=== PATIENT | male | born 1950 | race Caucasian/White ===

== ENCOUNTER 2018-02-28 15:17 | Emergency (ER) | payer OTHER ==
[~2018-02-28] VITALS: Ht 180.3 cm; Wt 94.8 kg
[2018-02-28 15:43] LABS: BASO % 0.2 % (0.0-1.0); HEMOGLOBIN 16.9 g/dl (14.0-18.0); LYMPH # 0.9 10*3/uL (1.3-4.4); LYMPH % 15.7 % (27.0-41.0); MEAN CELL VOLUME 93.3 fl (80.0-94.0); MEAN CORPUSCULAR HGB 32.2 pg (27.0-31.0); MEAN CORPUSCULAR HGB CONC 34.5 g/dl (33.0-37.0); MEAN PLATELET VOLUME 10.1 fl (9.6-12.3); MONO # 0.6 10*3/uL (0.1-1.0); MONO % 10.2 % (3.0-9.0); NEUT % 73.4 % (47.0-73.0); PLATELET COUNT AUTOMATED 71 10*3/uL (130-400); RED BLOOD COUNT 5.25 10*6/uL (4.50-5.90); RED CELL DISTRI WIDTH 13.1 % (0-14.5); WHITE BLOOD COUNT 5.5 10*3/uL (4.8-10.8)
[2018-02-28 15:58] LABS: ALBUMIN 3.5 gm/dl (3.1-4.5); ALKALINE PHOSPHATASE 57 U/L (45-117); BUN 19 mg/dl (7-24); CHLORIDE 101 mmol/L (98-107); CREATININE 1.25 mg/dL (0.70-1.30); POTASSIUM 3.8 mmol/L (3.5-5.1); SGOT/AST 66 IU/L (3-35); SGPT/ALT 47 U/L (12-78); SODIUM 132 mmol/L (136-145); TOTAL PROTEIN 7.3 gm/dL (6.4-8.2)
[2018-02-28 16:00] LABS: TROPONIN I 0.017 ng/ml (<0.045)
[2018-02-28 17:14] LABS: BILIRUBIN 1+ (NEGATIVE); BLOOD NEGATIVE (NEGATIVE); CLARITY SL CLOUDY (CLEAR); COLOR YELLOW (YELLOW); GLUCOSE NEGATIVE (NEGATIVE); KETONE NEGATIVE (NEGATIVE); LEUKO ESTERASE NEGATIVE (NEGATIVE); NITRITE NEGATIVE (NEGATIVE); PH 5.5 (5.0-9.0); SPECIFIC GRAVITY >= 1.030 (1.005-1.030)
[2018-02-28 17:23] LABS: BACTERIA 4+; EPITHELIAL CELLS 0-2; MUCOUS 1+; RBC 0-2 rbc/hpf (0-2)
[2018-02-28] MEDS ORDERED: DELTASONE20 M1 PO (17:35)
[2018-02-28] MEDS ORDERED: KEFLEX500 M1 PO (17:35)
[2018-02-28] MEDS ORDERED: PROAIR HFA8.5 GM INH (17:35)
== END 2018-02-28 17:42 | disposition home or self-care (01) ==
LOC: ED 15:17
PROVIDERS: Physician Assistant
DX: N39.0 Urinary tract infection, site not specified (principal); B34.9 Viral infection, unspecified; F17.200 Nicotine dependence, unspecified, uncomplicated